=== PATIENT | female | born 1980 | race Two or more races ===

== ENCOUNTER 2025-09-24 10:55 | Day surgery (SDC) | payer MEDICAID, SELFPAY ==
[2025-09-24] VITALS (9 sets, daily range): BP systolic 115–138; BP diastolic 71–94; PULSE 55–64; RESP 7–18; TEMP 36.1–36.8; O2SAT 97–100; BMI 30.4
[2025-09-24] MEDS: MIDAZOLAM INJ 1 MG/ML VIAL 2 ML (ASD USE ONLY) 2 MG IVP (13:25)
[2025-09-24] MEDS: RINGERS LACTATED 1000 ML 1,000 ML 125 ML IV (13:25)
[2025-09-24] MEDS: fentaNYL CIT INJ 50 mCg/ML AMP 2ML (ASD USE ONLY) IVP (13:26)
== END 2025-09-24 14:05 | disposition home or self-care (01) ==
PROVIDERS: Referring Provider Specialist; Visit Provider Specialist
PROC: (CPT 43239; principal; 2025-09-24 12:15)
DX: K21.00 Gastro-esophageal reflux disease with esophagitis, without bleeding (principal); K44.9 Diaphragmatic hernia without obstruction or gangrene
CPT/HCPCS: 43239; 81025; A4649; J1200; J2250; J3010; J7120